=== PATIENT | male | born 1950 | race American Indian/Alaskan Native ===

== ENCOUNTER 2018-10-27 13:48 | Emergency (ER) | payer MEDICARE ==
[2018-10-27 14:17] VITALS: BP 114/80
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
[2018-10-27] MEDS ORDERED: IBUPROFEN PO ONE ×3 (14:20→17:27)
--- NOTE | 2018-10-27 14:58 | XRay Report ---
RIGHT SHOULDER, 3 VIEWS: HISTORY: right shoulder pain, fall. Normal bone mineralization. No acute osseous injury or joint pathology is detected. Mild osteoarthritic changes are identified at the glenohumeral joint and a.c. joint. The soft tissues are unremarkable. IMPRESSION: Mild osteoarthritis. No acute injury is appreciated.
--- NOTE | 2018-10-27 15:54 | Emergency Department Report ---
ED Upper Extremity Inj HPI - General Chief Complaint: Extremity Injury, Upper Stated Complaint: (R) ARM PAIN Time Seen by Provider: 10/27/18 14:15 Source: patient Mode of arrival: Ambulatory Limitations: No Limitations - History of Present Illness Initial Comments: 68-year-old -[place] male presents to the ER with complaint of right arm pain mostly at his shoulder from a ground-level fall. Patient reports approximately 3 hours ago a dog was chasing him while he was exercising outside. Patient reports he went to show the dog and he fell on his right shoulder. Patient reports pain as a 10 out of 10. Patient denies any head injury or loss of consciousness and no prolonged time for being down. Patient does admit to a history of hypertension diabetes currently taking metformin Lantus and lisinopril. Patient has no known drug allergies. MD Complaint: Injury to:: right, shoulder -: This afternoon Other Extremity Injury: Shoulder: Right Severity scale (0 -10): 10 Improves With: none Worsens With: movement of extremity Context: fall Associated Symptoms: denies other symptoms. denies: weakness, numbness, neck pain - Related Data Previous Rx's Medication Instructions Recorded Last Taken Type Naproxen [Naprosyn] 500 mg PO BID #20 tablet 10/27/18 Unknown Rx Allergies Allergy/AdvReac Type Severity Reaction Status Date / Time No Known Allergies Allergy Verified 10/27/18 13:53 ED Review of Systems ROS: Stated complaint: (R) ARM PAIN Other details as noted in HPI Constitutional: denies: chills, fever Eyes: denies: eye pain, eye discharge, vision change ENT: denies: ear pain, throat pain Respiratory: denies: cough, shortness of breath, wheezing Cardiovascular: denies: chest pain, palpitations Endocrine: no symptoms reported Gastrointestinal: denies: abdominal pain, nausea, diarrhea Genitourinary: denies: urgency, dysuria Musculoskeletal: arthralgia (right shoulder) Skin: denies: rash, lesions Neurological: denies: headache, weakness, paresthesias ED Past Medical Hx - Past Medical History Previous Medical History?: No Hx Hypertension: Yes Hx Diabetes: Yes Hx Dementia: Yes - Surgical History Past Surgical History?: No - Social History Smoking Status: Never Smoker Substance Use Type: None - Medications Home Medications: Home Medications Medication Instructions Recorded Confirmed Last Taken Type Naproxen [Naprosyn] 500 mg PO BID #20 tablet 10/27/18 Unknown Rx ED Physical Exam - General Limitations: No Limitations General appearance: alert, in no apparent distress - Head Head exam: Present: atraumatic, normocephalic - Eye Eye exam: Present: normal appearance - ENT ENT exam: Present: mucous membranes moist - Neck Neck exam: Present: normal inspection - Respiratory Respiratory exam: Present: normal lung sounds bilaterally. Absent: chest wall tenderness - Cardiovascular Cardiovascular Exam: Present: regular rate, normal rhythm. Absent: systolic murmur, diastolic murmur, rubs, gallop - Extremities Exam Extremities exam: Present: full ROM, tenderness. Absent: joint swelling - Back Exam Back exam: Present: normal inspection - Neurological Exam Neurological exam: Present: alert, oriented X3 - Psychiatric Psychiatric exam: Present: normal affect, normal mood - Skin Skin exam: Present: warm, dry, intact, normal color. Absent: rash ED Course Vital Signs 10/27/18 10/27/18 14:15 14:49 Temperature 98.1 F Pulse Rate 108 H Respiratory 20 15 Rate Blood Pressure 114/80 O2 Sat by Pulse 100 Oximetry ED Medical Decision Making - Radiology Data Radiology results: report reviewed Patient: BERNARD RICHARDS MR#: [id number] : 1950 Acct:[id number] Age/Sex: 68 / M ADM Date: 10/27/18 Loc: ED Attending Dr: Ordering Physician: DONALD HAND Date of Service: 10/27/18 Procedure(s): XR shoulder 2+V RT Accession Number(s): [id number] cc: DONALD HAND Fluoro Time In Minutes: RIGHT SHOULDER, 3 VIEWS: HISTORY: right shoulder pain, fall. Normal bone mineralization. No acute osseous injury or joint pathology is detected. Mild osteoarthritic changes are identified at the glenohumeral joint and a.c. joint. The soft tissues are unremarkable. IMPRESSION: Mild osteoarthritis. No acute injury is appreciated. Transcribed By: TTR Dictated By: LAURITA BARRON JR, MD Electronically Authenticated By: LAURITA BARRON JR, MD Signed Date/Time: 10/27/181452 DD/ 52 TD/TT: 05/23/19 1453 Critical care attestation.: If time is entered above; I have spent that time in minutes in the direct care of this critically ill patient, excluding procedure time. ED Disposition Clinical Impression: Shoulder injury Qualifiers: Encounter type: initial encounter Laterality: right Qualified Code(s): S49.91XA - Unspecified injury of right shoulder and upper arm, initial encounter Osteoarthritis of shoulder Qualifiers: Osteoarthritis type: primary Laterality: right Qualified Code(s): M19.011 - Primary osteoarthritis, right shoulder Disposition: TO HOME OR SELFCARE Is pt being admited?: No Does the pt Need Aspirin: No Condition: Stable Instructions: Osteoarthritis (ED), Fall Prevention for Older Adults (ED) Additional Instructions: Take medication as needed for pain. Increase your fluid in take while on pain medication. Prescriptions: Naproxen [Naprosyn] 500 mg PO BID #20 tablet Referrals: ZANDRA HUSRT MD [Primary Care Provider] - 3-5 Days
== END 2018-10-27 16:30 | disposition home or self-care (01) ==
LOC: ED 13:48
DX: M19.011 Primary osteoarthritis, right shoulder (principal); S49.91XA Unspecified injury of right shoulder and upper arm, initial encounter; I10 Essential (primary) hypertension; E11.9 Type 2 diabetes mellitus without complications; W18.30XA Fall on same level, unspecified, initial encounter; Y93.89 Activity, other specified; Y92.89 Other specified places as the place of occurrence of the external cause; Y99.8 Other external cause status
CPT/HCPCS: 99283

== ENCOUNTER 2019-06-24 13:48 | Emergency (ER) | payer MEDICARE ==
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
[2019-06-24 14:53] VITALS: BP 120/71
[2019-06-24 15:26] LABS: Basophils % (Auto) 0.2 % (0.0-1.8); Eosinophils # (Auto) 0.1 K/mm3 (0.0-0.4); Hematocrit 39.7 % (35.5-45.6); Hemoglobin 13.2 gm/dl (11.8-15.2); Lymphocytes # (Auto) 1.1 K/mm3 (1.2-5.4); Mean Corpuscular HGB Conc 33 % (32-34); Mean Corpuscular Volume 89 fl (84-94); Monocytes # (Auto) 0.3 K/mm3 (0.0-0.8); Monocytes % (Auto) 7.7 % (0.0-7.3); Platelet Count 159 K/mm3 (140-440); Red Blood Count 4.47 M/mm3 (3.65-5.03)
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
[2019-06-24 15:51] LABS: Alanine Aminotransferase 20 units/L (7-56); Albumin 3.7 g/dL (3.9-5); BUN/Creatinine Ratio 11; Blood Urea Nitrogen 12 mg/dL (9-20); Calcium 8.8 mg/dL (8.4-10.2); Hemolysis Index 6
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
--- NOTE | 2019-06-24 17:16 | Cat Scan Report ---
See prior report Signer Name: Chi Branch MD Signed: 06/24/2019 5:12 PM Workstation Name: [id number]
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
== END 2019-06-24 18:00 | disposition home or self-care (01) ==
LOC: ED 13:48
DX: S16.1XXA Strain of muscle, fascia and tendon at neck level, initial encounter (principal); S09.90XA Unspecified injury of head, initial encounter; R07.89 Other chest pain; R10.9 Unspecified abdominal pain; I11.0 Hypertensive heart disease with heart failure; I50.9 Heart failure, unspecified; E11.9 Type 2 diabetes mellitus without complications; M19.90 Unspecified osteoarthritis, unspecified site; F03.90 Unspecified dementia, unspecified severity, without behavioral disturbance, psychotic disturbance, mood disturbance, and anxiety; Z79.899 Other long term (current) drug therapy; V49.59XA Passenger injured in collision with other motor vehicles in traffic accident, initial encounter; Y93.89 Activity, other specified; Y92.410 Unspecified street and highway as the place of occurrence of the external cause; Y99.8 Other external cause status
CPT/HCPCS: 36415; 70450; 71260; 72125; 74177; 80053; 84484; 85025; 93005; 93010; 99285; Q9967